=== PATIENT | male | born 1980 | race Caucasian/White ===

== ENCOUNTER 2019-03-07 09:49 | Emergency (ER) | payer MEDICAID ==
[~2019-03-07] VITALS: Ht 172.7 cm; Wt 65.8 kg
--- NOTE | 2019-03-07 09:55 | NUR ---
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 PT IS AAOX0, NOTED RESTLESSNESS,NOT IN RESPIRATORY DISTRESS, HOOKED TO MONITOR, KEPT RESTED AND COMFORTABLE, WILL CONTINUE TO MONITOR.
[2019-03-07] MEDS ORDERED: OLANZAPINE 10 MG VIAL IM ONE ×2 (10:00→10:06)
[2019-03-07] MEDS ORDERED: LORAZEPAM INJ 2 MG/ML VIAL IM ONE (10:00)
[2019-03-07] MEDS ORDERED: diphenhydrAMINE HCL 50 MG/ML VIAL IM ONE (10:00)
--- NOTE | 2019-03-07 10:01 | NUR ---
SEEN AND EXAMINED BY .
[2019-03-07] MEDS ORDERED: diphenhydrAMINE HCL 50 MG/ML VIAL ONE (10:06)
--- NOTE | 2019-03-07 10:06 | NUR ---
URINE SPECIMEN COLLCETD AND SENT TO LAB.
[2019-03-07] MEDS ORDERED: LORAZEPAM INJ 2 MG/ML VIAL ONE ×2 (10:07→12:07)
--- NOTE | 2019-03-07 10:12 | NUR ---
BLOOD DRAWNED AND SENT TO LAB.
[2019-03-07 10:15] LABS: BASOPHILS # (AUTO) 0.1 /CMM (0.0-0.2); BASOPHILS % (AUTO) 0.6 % (0.0-2.0); EOSINOPHILS % (AUTO) 0.1 % (0.0-6.0); HEMATOCRIT 35 % (39-51); HEMOGLOBIN 10.9 g/dL (13.5-17.5); LYMPHOCYTES # (AUTO) 1.2 /CMM (0.8-4.8); LYMPHOCYTES % (AUTO) 7.3 % (20.0-44.0); MEAN CORPUSCULAR HGB CONC 31 g/dl (31.0-36.0); MEAN CORPUSCULAR VOLUME 77 fL (80-96); MONOCYTES # (AUTO) 1.5 /CMM (0.1-1.30); NEUTROPHILS # (AUTO) 13.8 /CMM (1.8-8.9); PLATELET COUNT (AUTO) 426 /CMM (150-450); RED BLOOD CELL COUNT(AUTO) 4.51 MIL/uL (4.5-6.0); WHITE BLOOD COUNT (AUTO) 16.6 K/uL (4.3-11.0)
[2019-03-07 10:20] LABS: BILIRUBIN,URINE SMALL (NEGATIVE); BLOOD, URINE Trace-intact Ery/uL (NEGATIVE); COLOR,URINE Yellow (YELLOW); KETONES,URINE Negative (NEGATIVE); LEUKOCYTE ESTERASE ,URINE Negative (NEGATIVE); NITRITE, URINE Negative (NEGATIVE); PH,URINE 5.5 (5.0-8.0); PROTEIN,URINE Trace mg/dl (NEGATIVE); UGLUCOSE Negative (NEGATIVE); UROBILINOGEN,URINE 0.2 EU/dL (0.2)
[2019-03-07 10:20] LABS: CALCIUM, SERUM 9.7 mg/dL (8.5-10.1); CARBON DIOXIDE 24 mmol/L (21-32); CHLORIDE 107 mmol/L (98-107); GLUCOSE 69 mg/dL (74-106); POTASSIUM 3.8 mmol/L (3.5-5.1); SODIUM SERUM 145 mmol/L (136-145); UREA NITROGEN, BLOOD 23 mg/dL (7-18)
[2019-03-07 10:22] LABS: APPEARANCE,URINE Hazy (CLEAR)
[2019-03-07 10:26] LABS: ALANINE AMINOTRANSFERASE 34 U/L (12-78); ALBUMIN 3.4 g/dL (3.4-5.0); ALCOHOL, BLOOD < 3 mg/dL (0-0); ALKALINE PHOSPHATASE 148 U/L (46-116); ASPARTATE AMINOTRANSFERASE 48 U/L (15-37); BILIRUBIN,DIRECT 0.2 mg/dL (0.0-0.2); BILIRUBIN,TOTAL 0.5 mg/dL (0.2-1.0); SALICYLATE 3.1 mg/dL (2.8-20.0); TOTAL PROTEIN, SERUM 9.2 g/dL (6.4-8.2)
[2019-03-07 10:28] LABS: ACETAMINOPHEN 0 ug/ml (10-30)
[2019-03-07 10:30] LABS: BACTERIA,URINE Rare /HPF (None Seen); SQUAMOUS EPITHELIAL CELL,UR Few /HPF (None Seen); WBC,URINE 0-3 /HPF (0-3)
[2019-03-07 10:31] LABS: URINE AMORPHOUS URATE Few /HPF (None Seen)
[2019-03-07] MEDS ORDERED: LORAZEPAM INJ 2 MG/ML VIAL IVP ONE (12:00)
[2019-03-07] MEDS ORDERED: IV NS 0.9% 1,000 ML BAG IV ONE (12:00)
--- NOTE | 2019-03-07 19:02 | NUR ---
REPORT GIVEN TO ANDREWS MICHEL FOR JENNIFER. WITH ONGOING IV ANTIBIOTIC AND NS.
--- NOTE | 2019-03-07 19:02 | NUR ---
Arlin morgan in ED - 03/07/19 at 1903 by MODE REPORT GIVEN TO ANDREWS MICHEL FOR JENNIFER. WITH ONGOING IV ANTIBIOTIC AND NS.
--- NOTE | 2019-03-08 05:40 | NUR ---
PT PROVIDED WITH FOOD AND DRINK,.
--- NOTE | 2019-03-08 05:53 | NUR ---
PT OK TO DISCHARGE PER DR ORNELAS. IV removed. Catheter intact and site benign. Pressure and 4x4 applied to site. No bleeding noted.Patient discharged to home in stable condition. Written and verbal after care instructions given. Patient verbalizes understanding of instruction.Patient is awake and alert to self, day, and place. PT ambulatory with a steady gait
[2019-03-08 07:24] VITALS: BP 141/82
--- NOTE | 2019-03-08 07:24 | NUR ---
Patient given written and verbal discharge instructions. Patient verbalizes understanding of instructions. Patient is ambulatory with steady gait. Refuses offer of detention placement. Patient given list of available shelters in surrounding area.
== END 2019-03-08 07:26 | disposition home or self-care (01) ==
LOC: EDBD 10:00 → ER 10:00
DX: F15.10 Other stimulant abuse, uncomplicated (principal); Z79.899 Other long term (current) drug therapy
CPT/HCPCS: 36415; 80048; 80076; 80305; 80307; 80329; 81001; 85025; 96372 ×3; 96374; 99283; G0480; J1200; J2060 ×2; J3490; J7030; 81000-TC

== ENCOUNTER 2019-03-27 22:24 | Emergency (ER) | payer MEDICAID ==
[~2019-03-27] VITALS: Ht 172.7 cm; Wt 65.8 kg
--- NOTE | 2019-03-27 22:30 | NUR ---
PT [facility] AND [employer] FOR BIZZARE BEHAVIOR. PT FOUND RUNNING IN AND OUT TRAFFIC AND "DOING SNOW ANGELS" ON THE FLOOR OUTSIDE. PT ARRIVED TO ED BEING VERBALLY AND PHYSICALLY AGGRESSIVE. ER MD AND HOSPITAL SECURITY MADE AWARE. SITTER AT BEDSIDE. SUICIDE PRECAUTIONS INITIATED. WILL CONTINUE TO MONITOR
[2019-03-27] MEDS ORDERED: diphenhydrAMINE HCL 50 MG/ML VIAL ONE (22:37)
[2019-03-27] MEDS ORDERED: OLANZAPINE 10 MG VIAL IM ONE ×2 (22:37→23:00)
[2019-03-27] MEDS ORDERED: LORAZEPAM INJ 2 MG/ML VIAL ONE (22:38)
[2019-03-27 22:56] LABS: BASOPHILS # (AUTO) 0.2 /CMM (0.0-0.2); BASOPHILS % (AUTO) 1.2 % (0.0-2.0); EOSINOPHILS % (AUTO) 0.1 % (0.0-6.0); HEMATOCRIT 31 % (39-51); HEMOGLOBIN 9.8 g/dL (13.5-17.5); LYMPHOCYTES # (AUTO) 1.3 /CMM (0.8-4.8); LYMPHOCYTES % (AUTO) 8.8 % (20.0-44.0); MEAN CORPUSCULAR HGB CONC 32 g/dl (31.0-36.0); MEAN CORPUSCULAR VOLUME 74 fL (80-96); MONOCYTES # (AUTO) 1.4 /CMM (0.1-1.30); NEUTROPHILS # (AUTO) 11.5 /CMM (1.8-8.9); NEUTROPHILS % (AUTO) 79.9 % (43.0-81.0); PLATELET COUNT (AUTO) 513 /CMM (150-450); RED BLOOD CELL COUNT(AUTO) 4.21 MIL/uL (4.5-6.0); WHITE BLOOD COUNT (AUTO) 14.4 K/uL (4.3-11.0)
[2019-03-27] MEDS ORDERED: LORAZEPAM INJ 2 MG/ML VIAL IM ONE ×2 (23:00)
[2019-03-27] MEDS ORDERED: diphenhydrAMINE HCL 50 MG/ML VIAL IM ONE (23:00)
[2019-03-27 23:49] LABS: CARBON DIOXIDE 26 mmol/L (21-32); CHLORIDE 101 mmol/L (98-107); CREATININE 0.9 mg/dL (0.6-1.3); GLUCOSE 92 mg/dL (74-106); POTASSIUM 3.9 mmol/L (3.5-5.1); SODIUM SERUM 139 mmol/L (136-145); UREA NITROGEN, BLOOD 24 mg/dL (7-18)
[2019-03-27 23:51] LABS: ACETAMINOPHEN 0 ug/ml (10-30); ALANINE AMINOTRANSFERASE 25 U/L (12-78); ALBUMIN 2.8 g/dL (3.4-5.0); ALCOHOL, BLOOD < 3 mg/dL (0-0); ALKALINE PHOSPHATASE 122 U/L (46-116); ASPARTATE AMINOTRANSFERASE 41 U/L (15-37); BILIRUBIN,DIRECT 0.3 mg/dL (0.0-0.2); BILIRUBIN,TOTAL 0.7 mg/dL (0.2-1.0); SALICYLATE 2.2 mg/dL (2.8-20.0); TOTAL PROTEIN, SERUM 8.3 g/dL (6.4-8.2)
[2019-03-28] MEDS ORDERED: IV NS 0.9% 1,000 ML BAG IV ONE
--- NOTE | 2019-03-28 00:09 | NUR ---
PT TRANSPORTED TO RADIOLOGY FOR CT'S
--- NOTE | 2019-03-28 00:45 | NUR ---
PIV STARTED ON LFA20, C COLLAR IN PLACE PER MD ORDER
--- NOTE | 2019-03-28 01:17 | NUR ---
PT UNABLE TO PROVIDE URINE SAMPLE AT THIS TIME. ER AWARE
--- NOTE | 2019-03-28 01:52 | NUR ---
PER VERBAL MD ORDER, WILL REMOVE HARD CERVICAL COLLAR. PT ON MONITOR, RESTING IN BED. WILL CONTINUE TO MONITOR
--- NOTE | 2019-03-28 04:52 | NUR ---
PT RESTING COMFORTABLY IN BED. OPENS EYES TO PAINFUL STIMULI. VITAL SIGNS STABLE. WILL CONTINUE TO MONITOR
--- NOTE | 2019-03-28 06:41 | NUR ---
PT RESTING IN BED. OPENS EYES TO PAINFUL STIMULI. VITAL SIGNS STABLE. STILL ON MONITOR, WILL CONTINUE TO MONITOR
[2019-03-28 07:17] LABS: BILIRUBIN,URINE NEGATIVE (NEGATIVE); KETONES,URINE 1+ (NEGATIVE); UGLUCOSE NEGATIVE (NEGATIVE)
[2019-03-28 07:18] LABS: APPEARANCE,URINE CLEAR (CLEAR); COLOR,URINE DARK YELLOW (YELLOW); LEUKOCYTE ESTERASE ,URINE NEGATIVE (NEGATIVE); NITRITE, URINE NEGATIVE (NEGATIVE); UROBILINOGEN,URINE 0.2 EU/dL (0.2)
[2019-03-28 07:19] LABS: BLOOD, URINE NEGATIVE Ery/uL (NEGATIVE); PROTEIN,URINE NEGATIVE (NEGATIVE)
--- NOTE | 2019-03-28 07:20 | NUR ---
ASSUME PT CARE. RESTING IN BED. ON MONITOR. VSS. SITTER AT BEDSIDE. WILL CONT. TO MONITOR.
[2019-03-28 07:53] LABS: BACTERIA,URINE Rare /HPF (None Seen); RBC,URINE 0-2 /HPF (0-2); WBC,URINE 0-2 /HPF (0-3)
[2019-03-28 07:54] LABS: MUCUS,URINE Few /LPF (None Seen); SQUAMOUS EPITHELIAL CELL,UR Rare /HPF (None Seen)
--- NOTE | 2019-03-28 08:20 | NUR ---
Social service consult requested by Dr. Pickering for methamphetamine use. Pt. is a 38 year old male how was brought to [facility] via rescue ambulance and [employer] for bizarre behavior and methamphetamine intoxication. Per EMS, patient was found running out of traffic and was "doing snow angels on the ground." Pt. is well know to this ED for multiple visits for methamphetamine use. Pt. is altered at this time and unable to provide any meaningful information. SW to follow up when pt. is alert and oriented.
--- NOTE | 2019-03-28 11:20 | NUR ---
PT AWAKE. PROVIDED W/ FOOD TRAY. STABLE VITALS.
--- NOTE | 2019-03-28 13:30 | NUR ---
SLEEPING. EASILY AROUSABLE. ON MONITOR. VSS. WILL CONTINUE TO MONITOR.
--- NOTE | 2019-03-28 15:05 | NUR ---
PT AMBULATED TO BATHROOM. STEADY GAIT. SITTER AT BEDSIDE.
--- NOTE | 2019-03-28 16:27 | NUR ---
EVELIN REYES AT BEDSIDE TALKING TO PT.
--- NOTE | 2019-03-28 16:28 | NUR ---
ERIC met with pt. with ANDREWS Madden to discuss discharge plan. Pt. is alert and oriented x 3. ERIC is familiar with the pt. from previous admissions. Pt. is homeless and resides in the streets of [place]. ERIC offered pt. longterm placement, however pt. declined. Pt. denies suicidal and homicidal ideations and visual/auditory hallucinations at this time. Pt. is a methamphetamine user and uses daily. ERIC encouraged pt.to go to a detox program and provided resources. ERIC gave pt. pair of shoes, shirt, socks and a baseball cap. Pt. was given a sandwich and coke as well. The following homeless longterm and homeless resource directory were given to the pt: [facility] located at [address] [facility] ; [facility], [address] [place] [address], [place] ; [facility], [address] [facility] [place] ; [facility] Homeless Resource Directory which includes food stamps, transitional housing, showers and hot meals etc; Mental Health clinics such as [facility] ; [facility] ; Health clinics;[facility] and Alcohol treatment centers such as [facility] [place], ; [facility] Substance Abuse Hotline and [facility] . Homeless Patient waiver form was signed by the pt. and placed in pt's chart. Pt. was provided with a TAP card to go to his location of choice. Dr. Mcdonald has been updated with pt's discharge plan.
--- NOTE | 2019-03-28 16:38 | NUR ---
PT AMBULATORY W/ STEADY GAIT. HOMELESS WAIVER SIGNED. PROVIDED W/ T SHIRT AND SHOES. D/C HOME IN STABLE CONDITION.
[2019-03-28 16:41] VITALS: BP 132/84
== END 2019-03-28 16:42 | disposition home or self-care (01) ==
LOC: ER 22:24
DX: S00.81XA Abrasion of other part of head, initial encounter (principal); F29 Unspecified psychosis not due to a substance or known physiological condition; D64.9 Anemia, unspecified; R79.89 Other specified abnormal findings of blood chemistry; E86.0 Dehydration; R51 Headache; R45.1 Restlessness and agitation; F15.10 Other stimulant abuse, uncomplicated; X58.XXXA Exposure to other specified factors, initial encounter; Y93.02 Activity, running; Y92.89 Other specified places as the place of occurrence of the external cause; Y99.8 Other external cause status
CPT/HCPCS: 36415; 70450; 70486; 72125; 80048; 80076; 80305; 80307; 80329; 81001; 85025; 96360; 96372 ×3; 99284; G0480; J1200; J2060; J3490; J7030; L0172; 81000-TC